=== PATIENT | male | born 1995 | race Caucasian/White ===

== ENCOUNTER 2022-05-11 19:54 | Emergency (ER) | payer SELFPAY ==
[2022-05-11] MEDS ORDERED: Ibuprofen 200 MG TAB ONE (20:47)
[2022-05-11] MEDS ORDERED: Penicillin V Potassium 250 MG TAB ONE (20:50)
== END 2022-05-11 20:57 | disposition home or self-care (01) ==
LOC: NAV ERS 19:54
DX: K04.4 Acute apical periodontitis of pulpal origin (principal)
CPT/HCPCS: 99282